=== PATIENT | male | born 1995 | race Caucasian/White ===

== ENCOUNTER 2017-02-28 15:43 | Emergency (ER) | payer OTHER ==
[~2017-02-28] VITALS: Ht 175.3 cm; Wt 87.8 kg
[2017-02-28 15:45] VITALS: BP 133/78
[2017-02-28] MEDS ORDERED: RABIES VACCINE /PF 2.5 UNITS IM-VACC ONE (16:00)
== END 2017-02-28 16:50 | disposition home or self-care (01) ==
LOC: ED 16:45
DX: S61.452A Open bite of left hand, initial encounter (principal); W53.81XA Bitten by other rodent, initial encounter; Y93.89 Activity, other specified; Y92.89 Other specified places as the place of occurrence of the external cause; Y99.9 Unspecified external cause status
CPT/HCPCS: 90471; 90675

== ENCOUNTER 2017-03-04 15:53 | Emergency (ER) | payer OTHER ==
[~2017-03-04] VITALS: Ht 175.3 cm; Wt 88.2 kg
[2017-03-04] MEDS ORDERED: RABIES VACCINE /PF 2.5 UNITS IM-VACC ONE (16:00)
[2017-03-04] MEDS ORDERED: OXYC-306 PO (16:40)
== END 2017-03-04 16:48 | disposition home or self-care (01) ==
LOC: ED 16:20
DX: Z20.3 Contact with and (suspected) exposure to rabies (principal)
CPT/HCPCS: 90471; 90675